=== PATIENT | female | born 1965 | race Caucasian/White ===

== ENCOUNTER 2023-09-15 08:04 | Inpatient (IN) | payer OTHER, SELFPAY ==
[2023-09-15] VITALS (12 sets, daily range): BP systolic 135–177; BP diastolic 67–88; PULSE 98–120; RESP 14–22; TEMP 36.2–36.8; O2SAT 92–99; BMI 37.9
--- NOTE | ~2023-09-15 | CT_ITS ---
EXAMINATION: CT abdomen pelvis w con DATE: 09/15/2023 09:54 INDICATION: Pancreatitis with upper abdominal pain TECHNIQUE: Computed tomography (CT) of the abdomen and pelvis was performed with 100 mL Omnipaque-350 intravenous contrast. Automated exposure control and iterative reconstruction technique were employe d. The dose-length product was 1127.04 mGy-cm. COMPARISON: None FINDINGS: Mild atelectasis in the bilateral lower lungs. Heart size is normal. Atherosclerotic coronary artery calcific location. No pericardial or pleural effusion. Liver, gallbladder, spleen, bilateral adrenal glands and right kidney are normal. 9 mm cyst at the upper pole of the left kidney. There is strandin g surrounding the head of the pancreas consistent with acute interstitial pancreatitis. No associated necrosis, hemorrhage or peripancreatic fluid collections. There is diffuse fatty infiltration of the wall of the colon likely related to body habitus. Small bowel and appendix are normal. Bladder, ante verted uterus and bilateral adnexa are unremarkable. No free intraperitoneal gas or fluid. No patholo gically enlarged abdominal or pelvic lymphadenopathy. Mild degenerative skeletal changes in the spine and pelvis. IMPRESSION: 1. Radiographically uncomplicated acute interstitial pancreatitis. Reviewed, dictated and finalized at location A. [employer] [employer]
--- NOTE | ~2023-09-15 | US_ITS ---
EXAMINATION: US abdomen limited DATE: 09/18/2023 10:01 INDICATION: Severe right upper quadrant pain TECHNIQUE: Multiple grayscale and Doppler ultrasound images of the abdomen were obtained. COMPARISON: None FINDINGS: The pancreatic head and body are normal in appearance. The pancreatic tail is not visualized. Liver has normal echogenicity and contour, with a smooth surface. No liver lesion identified. No intrahepat ic biliary duct dilation suspected. Portal venous flow was seen in the hepatopetal, normal direction and has normal Doppler waveform. The gallbladder is normal in appearance. There is a small amount of hypoechoic dependently layering sludge in the gallbladder but no shadowing cholelithiasis. The common bile duct measures 6 mm, which is normal. Sonographic Nuñez sign was reported as positive by the so nographer. Visualized portions of the proximal abdominal aorta and inferior vena cava are normal. IMPRESSION: 1. Positive sonographic Nuñez's sign but with normal-appearing gallbladder and no cholelithiasis. Th is could be related to the acute pancreatitis. Pancreas seen on prior CT but if there is high clinica l suspicion could consider further evaluation with HIDA scan. Reviewed, dictated and finalized at location A. [facility] IMPRESSION: 1. Positive sonographic Nuñez's sign but with normal-appearing gallbladder and no cholelithiasis. This could be related to the acute pancreatitis. Pancreas s een on prior CT but if there is high clinical suspicion could consider further evaluation with HIDA scan.
--- NOTE | 2023-09-15 08:34 | ECG_ITS ---
Measurements Intervals [place] Rate: 92 P: -20 NH: 156 QRS: -15 QRSD: 89 T: 60 QT: 375 QTc: 465 Interpretive Statements SINUS RHYTHM BASELINE ARTIFACT CANNOT RULE OUT aNTERIOR MYOCARDIAL INFARCTION , OF INDETERMINATE AGE BORDERLINE ECG NO PREVIOUS ECG AVAILABLE FOR COMPARISON Electronically Signed On 09-15-2023 14:08:26 [employer]K LIFT TECHNICIAN by Anthony Killian M.D.
[2023-09-15] MEDS: LACTATED RINGERS 1,000 ML 999 ML IV CONT ×2 (08:50→08:52)
[2023-09-15] MEDS: HYDROmorphone HCL INJ (*CRX) 1 MG/ML SYR IV PUSH (08:51)
[2023-09-15] MEDS: ONDANSETRON INJ 4 MG/2 ML VIAL IV PUSH (08:51)
[2023-09-15 09:02] LABS: Basophils Absolute Auto 0.1 K/mm3 (0.0-0.1); Basophils Percent Auto 0.9 % (0.2-1.2); Eosinophils Absolute Auto 0.1 K/mm3 (0-0.3); Hematocrit 39.3 % (37.0-47.0); Hemoglobin 12.7 g/dL (12.0-15.0); Immature Granulocyte Absolute 0.02 K/mm3 (0.00-0.031); Immature Granulocyte Percent A 0.4 % (0-0.5); Lymphocytes Absolute Auto 1.77 K/mm3 (0.9-3.2); Lymphocytes Percent Auto 32.7 % (18.3-44.2); Mean Corpuscular HGB Conc 32.3 g/dl (32-36); Mean Corpuscular Hemoglobin 33.7 pg (26-34); Mean Corpuscular Volume 104.2 fl (80-100); Mean Platelet Volume 11.2 fl (7.4-10.4); Monocytes Absolute Auto 0.5 K/mm3 (0.1-0.6); Monocytes Percent Auto 9.2 % (2.6-8.5); Neutrophils Percent Auto 54.8 % (45.5-73.1); Platelet Count Result 197 k/mm3 (150-375); Red Blood Count 3.77 M/mm3 (4.2-5.4); Red Cell Distribution Width 16.2 % (11.5-14.5); White Blood Count 5.4 K/mm3 (4.5-10.0)
--- NOTE | 2023-09-15 09:05 | ED.ABDPAIN ---
HPI - Abdominal Pain General Chief Complaint: Abdominal Pain Stated Complaint: abd pain Time Seen by Provider: 09/15/23 08:16 Source: patient and RN notes reviewed Mode of arrival: ambulatory Limitations: no limitations History of Present Illness HPI narrative: This is a 58 year old female with history of alcohol abuse, pancreatitis who presents for evaluation of upper abdominal pain. She has had this pain for 4 days. Her pain has been constant and it radiates to her right flank. She states this pain is similar to previous episodes of pancreatitis. She has history of pancreatitis from daily drinking alcohol. She reports her last episode was 2 years ago and she has not followed with any doctors since . She took ibuprofen for her pain without any relief. She has been having nausea and vomiting since Sunday. She denies chest pain , fever, chills. She also reports using meth 3 days ago. Related Data Allergies Allergy/AdvReac Type Severity Reaction Status Date / Time No Known Allergies Allergy Verified 09/15/23 08:10 Review of Systems Review of Systems: All systems reviewed & are unremarkable except as noted in HPI and below Constitutional: Constitutional: Denies weakness Cardiovascular: Cardiovascular: Denies syncope, Denies rapid heart rate, Denies irregular heart rhythm, Denies leg edema and Denies dyspnea Respiratory: Respiratory: Denies chest congestion, Denies hemoptysis, Denies excessive phlegm production and Denies dyspnea Gastrointestinal: Gastrointestinal: Reports abdominal pain, Denies hematochezia, Denies diarrhea, Reports nausea and Reports vomiting Genitourinary: Genitourinary: Denies hematuria and Denies dysuria Musculoskeletal: Musculoskeletal: Reports back pain, Denies joint swelling, Denies loss of height and Denies muscle weakness Neurologic: Denies syncope, Denies focal weakness and Denies weakness [facility] Past Medical History Medical History (Updated 09/15/23 @ 17:49 by Sonya Harris MD) Alcohol abuse Coronary artery disease Pancreatitis Polysubstance abuse Surgical History Surgical History History of coronary artery stent placement Family History Family History (Updated 09/15/23 @ 15:00 by Kenia Wellington RN) Grandparent Diabetes mellitus Acute myocardial infarction Other Cerebrovascular accident Grandparent No problems noted. Mother Hypertension Heart failure Father Alcoholism Liver cirrhosis Other Alcoholism Social History Social History (Updated 09/15/23 @ 13:42 by Elodia Tay PA-C) Social History: Surrogate medical decision maker: Code status: Full code. Smoking packs per day: 1 Smoking cigarettes per day: 20.0 Years smoked: 45 Smoking pack-years: 45.00 Smoking status: Current every day smoker Tobacco type: cigarettes Second hand tobacco smoke exposure: No Alcohol intake: current Drinks per week: 140 Alcohol use details: 1 pint daily Substance use: current Substance use type: marijuana and methamphetamine Other substance usage details: currently drink one fifth of R&R/ day, approx. 20 mixed drinks/day. Last use: last use meth 09/07/23, last drink 09/13/23, last marijuana use 09/13 Lack of Transportation: YES Lack of Food: Never True Current Housing: I Do Not Have Housing Concerned About Future Housing: YES Difficulty Paying Gas/Electric Bills: No Difficulty Paying for Meds: No Currently Unemployed: No Education: High School Diploma/GED Difficulty w/ Childcare or Family Care: No Spiritual care concerns: No Exam Const: General: alert; No diaphoretic Nutritional Appearance: obese Orientation/consciousness: patient oriented x3 HENMT: Head: normal to inspection Eyes: EOM: EOMs intact bilaterally Neck: Neck: normal visual inspection Chest: Chest palpation & inspection: normal inspection of the chest Resp: [facility]
[2023-09-15 09:13] LABS: Alanine Aminotransferase 33 U/L (6-35); Albumin Level 4.3 g/dL (3.5-5.1); Alkaline Phosphatase 162 U/L (38-126); Anion Gap 14 mmol/L (8-16); Aspartate Amino Transferase 82 U/L (14-36); Bilirubin,Total 1.1 mg/dL (0.2-1.3); Blood Urea Nitrogen 7 mg/dL (7-17); Calcium 9.3 mg/dL (8.4-10.2); Carbon Dioxide 22 mmol/L (22-30); Chloride 101 mmol/L (98-107); Estimated CRCL calculation 73 ml/min; Estimated Glomerular Filt Rate > 60; Glucose 119 mg/dL (65-110); Lipase 810 U/L (23-300); Potassium 3.6 mmol/L (3.4-5.0); Sodium 137 mmol/L (137-145)
[2023-09-15 10:25] LABS: Appearance Urine Cloudy (Clear); Bacteria Urine Rare /hpf; Bilirubin Urine Negative (Negative); Blood Urine Negative (Negative); Color Urine Yellow (Yellow); Glucose Urine UA Negative (Negative); Ketones Urine Negative (Negative); Leukocyte Esterase Ur Negative LEU/UL (Negative); Nitrate Urine Negative (Negative); Non Pathogenic Casts 0-2; Protein Urine Negative (Negative); RBC Urine 0-2 /hpf (0-2); Squamous Epithelial Cell Urine Moderate /hpf (Few); WBC Urine 0-5 /hpf
[2023-09-15 11:00] LABS: Specific Grav Ur 1.042 (1.001-1.035)
[2023-09-15 11:02] LABS: Add Urine Microscopic? YES
[2023-09-15] MEDS: HYDROmorphone HCL INJ (*CRX) 1 MG/ML SYR 0.5 MG IV PUSH ×3 (11:47→20:48)
--- NOTE | 2023-09-15 12:15 | ADMGEN ---
This patient, Iesha Camargo, was admitted to 2 Medical Room 261-01. Patient/family oriented to hospital policies and general routines including ID bracelet, bed and alarms, visiting hours, pain management, procedures, bathroom and other care routines, personal items, smoking policy, room service/diet, and visiting hours. Information on how to activate the Rapid Response Team has been discussed. Patient/Family are encouraged to report perceived risks to care and to ask questions if they do not understand what they are told or what they should do. Report taken from VASQUEZ Falcon in ED
--- NOTE | 2023-09-15 13:38 | PM.IMHP ---
H&P: HPI History of Present Illness Date/Time: 09/15/23 14:00 Chief Complaint: Abdominal pain. Narrative: This is a pleasant 58-year-old female smoker with history of pancreatitis, alcohol and illicit substance abuse, and coronary artery disease status post stents who presented to the emergency department via private vehicle for evaluation of abdominal pain. The patient provides the following history. She gives a 4 day history of consistent and progressively worsening diffuse upper abdominal pain radiating to the flank associated with nausea. She has been taking ibuprofen for pain without relief. These symptoms are similar to those she had experienced with pancreatitis 2 years ago. She has not had a drink of alcohol for 2 days and reports feeling mildly tremulous and anxious. She denies fever, chills, sweats, chest pain, shortness a breath, hematemesis, melena, hematochezia, hallucinations, and history of alcohol withdrawal seizure. She was afebrile on arrival to the emergency department with stable vital signs though systolic blood pressures have been a bit elevated. Workup in the ED is consistent with acute uncomplicated interstitial pancreatitis and she is being admitted in this setting for further treatment. Review of Systems Review of Systems: Twelve systems were reviewed and are negative except for as per HPI. [facility] Past Medical History Medical History (Updated 09/15/23 @ 17:49 by Sonya Harris MD) Alcohol abuse Coronary artery disease Pancreatitis Polysubstance abuse Surgical History Surgical History History of coronary artery stent placement Family History Family History Grandparent Diabetes mellitus Acute myocardial infarction Other Cerebrovascular accident Grandparent No problems noted. Mother Hypertension Heart failure Father Alcoholism Liver cirrhosis Other Alcoholism Social History Social History (Updated 09/15/23 @ 20:48 by Elodia Tay PA-C) Social History: Surrogate medical decision maker: Yesica Camargo, [id number]. Code status: Full code. Smoking packs per day: 1 Smoking cigarettes per day: 20.0 Years smoked: 45 Smoking pack-years: 45.00 Smoking status: Current every day smoker Tobacco type: cigarettes Second hand tobacco smoke exposure: No Alcohol intake: current Drinks per week: 140 Alcohol use details: Up to a 5th of whiskey a day. Substance use: current Substance use type: marijuana and methamphetamine Other substance usage details: currently drink one fifth of R&R/ day, approx. 20 mixed drinks/day. Last use: last use meth 09/07/23, last drink 09/13/23, last marijuana use 09/13 Lack of Transportation: YES Lack of Food: Never True Current Housing: I Do Not Have Housing Concerned About Future Housing: YES Difficulty Paying Gas/Electric Bills: No Difficulty Paying for Meds: No Currently Unemployed: No Education: High School Diploma/GED Difficulty w/ Childcare or Family Care: No Spiritual care concerns: No Meds Home Medications and Allergies Home Medications Medication Instructions Recorded Confirmed Type No Home Medications 09/15/23 09/15/23 History Allergies Allergy/AdvReac Type Severity Reaction Status Date / Time No Known Allergies Allergy Verified 09/15/23 08:10 Vital Signs Vital Signs - 24 hr 09/15/23 08:08 09/15/23 08:18 09/15/23 10:02 Temperature 98.3 F Pulse Rate 120 H 113 H 101 H Respiratory Rate 20 22 H 14 Blood Pressure 177/84 H 164/88 H 158/83 H Pulse Oximetry 99 99 97 Oxygen Delivery Room Air 09/15/23 10:13 09/15/23 11:08 09/15/23 10:59 Temperature Pulse Rate 104 H 102 H 105 H Respiratory Rate 17 19 18 Blood Pressure 175/86 H 144/70 H 135/67 Pulse Oximetry 97 95 96 Oxygen Delivery 09/15/23 11:49 Temperature Pulse Rate 1
[2023-09-15] MEDS: THIAMINE HCL 200 MG/2 ML VIAL 100 MG IM (16:06)
[2023-09-15] MEDS: LACTATED RINGERS 1,000 ML 150 ML IV CONT ×2 (16:06→23:13)
[2023-09-15] MEDS: FOLIC ACID 1 MG/0.2 ML INJ IV PUSH (16:07)
[2023-09-15] MEDS: chlordiazePOXIDE (*CRX) 25 MG CAPSULE PO (20:42)
[2023-09-15] MEDS: NICOTINE (*PBKC) 21 MG PATCH 1 PATCH TRANSDERM (20:42)
[2023-09-15] MEDS: LORazepam INJ (*CRX) 2 MG/ML VIAL IV PUSH (23:15)
[2023-09-16] VITALS (9 sets, daily range): BP systolic 141–151; BP diastolic 67–79; PULSE 94–106; RESP 16–18; TEMP 36.2–36.5; O2SAT 84–98
[2023-09-16] MEDS: HYDROmorphone HCL INJ (*CRX) 1 MG/ML SYR 0.5 MG IV PUSH (04:59)
[2023-09-16] MEDS: LORazepam INJ (*CRX) 2 MG/ML VIAL IV PUSH ×3 (05:06→17:34)
[2023-09-16] MEDS: chlordiazePOXIDE (*CRX) 25 MG CAPSULE PO ×3 (05:06→22:13)
[2023-09-16 05:38] LABS: Basophils Absolute Auto 0.1 K/mm3 (0.0-0.1); Eosinophils Absolute Auto 0.1 K/mm3 (0-0.3); Eosinophils Percent Auto 1.9 % (0-4.4); Hematocrit 35.4 % (37.0-47.0); Hemoglobin 11.2 g/dL (12.0-15.0); Immature Granulocyte Absolute 0.02 K/mm3 (0.00-0.031); Immature Granulocyte Percent A 0.4 % (0-0.5); Lymphocytes Absolute Auto 1.75 K/mm3 (0.9-3.2); Lymphocytes Percent Auto 33.7 % (18.3-44.2); Mean Corpuscular HGB Conc 31.6 g/dl (32-36); Mean Corpuscular Hemoglobin 33.6 pg (26-34); Mean Corpuscular Volume 106.3 fl (80-100); Mean Platelet Volume 10.2 fl (7.4-10.4); Monocytes Absolute Auto 0.5 K/mm3 (0.1-0.6); Monocytes Percent Auto 8.9 % (2.6-8.5); Neutrophils Absolute Auto 2.8 K/mm3 (1.3-6.7); Neutrophils Percent Auto 54.1 % (45.5-73.1); Platelet Count Result 166 k/mm3 (150-375); Red Blood Count 3.33 M/mm3 (4.2-5.4); Red Cell Distribution Width 16.3 % (11.5-14.5); White Blood Count 5.2 K/mm3 (4.5-10.0)
[2023-09-16 05:49] LABS: Alanine Aminotransferase 28 U/L (6-35); Albumin Level 3.6 g/dL (3.5-5.1); Alkaline Phosphatase 123 U/L (38-126); Anion Gap 9 mmol/L (8-16); Aspartate Amino Transferase 72 U/L (14-36); Bilirubin,Total 1.1 mg/dL (0.2-1.3); Blood Urea Nitrogen 8 mg/dL (7-17); Calcium 8.5 mg/dL (8.4-10.2); Carbon Dioxide 24 mmol/L (22-30); Chloride 102 mmol/L (98-107); Estimated CRCL calculation 86 ml/min; Estimated Glomerular Filt Rate > 60; Glucose 113 mg/dL (65-110); Lipase 329 U/L (23-300); Magnesium 1.6 mg/dL (1.6-2.3); Potassium 3.7 mmol/L (3.4-5.0); Sodium 135 mmol/L (137-145)
[2023-09-16 06:01] LABS: Anisocytosis 1+ (NORMAL); Platelet Estimate Adequate (Adequate); Schistocytes None Seen (NORMAL)
[2023-09-16] MEDS: LACTATED RINGERS 1,000 ML 150 ML IV CONT ×2 (06:28→13:42)
[2023-09-16 06:53] LABS: Folic Acid 7.7 ng/mL (2.76->20)
[2023-09-16] MEDS: PANTOPRAZOLE SODIUM IV 40 MG VIAL IV PUSH (08:18)
[2023-09-16] MEDS: THIAMINE HCL 200 MG/2 ML VIAL 100 MG IV PUSH (08:18)
[2023-09-16] MEDS: ENOXAPARIN 40 MG/0.4 ML SYRINGE SUB-Q (08:19)
[2023-09-16] MEDS: NICOTINE (*PBKC) 21 MG PATCH 1 PATCH TRANSDERM (08:20)
--- NOTE | 2023-09-16 10:43 | PM.IMPN ---
Progress Note: A&P Assessment and Plan (1) Acute pancreatitis: Qualifiers: Pancreatitis type: alcohol induced Code(s): K85.90 - Acute pancreatitis without necrosis or infection, unspecified Status: Acute Assessment and Plan: CT shows radiographically uncomplicated acute interstitial pancreatitis, most certainly due to alcohol abuse. Supportive care with bowel rest and IV fluid rehydration. Analgesics and antiemetics available as needed. Trend lipase daily, much improved today 09/16 09/16: ADAT (2) Dehydration: Code(s): E86.0 - Dehydration Status: Acute Assessment and Plan: Secondary to nausea, vomiting, and poor oral intake. Continue IV fluid rehydration. Monitor daily weights and I/O. (3) Alcohol abuse: Code(s): F10.10 - Alcohol abuse, uncomplicated Status: Acute Assessment and Plan: Patient reportedly drinks a pt of alcohol a day. Initiate CIWA protocol. Scheduled Librium 25 mg q.8 hours. Start thiamine and folic acid supplementation. (4) Polysubstance abuse: Code(s): F19.10 - Other psychoactive substance abuse, uncomplicated Status: Acute Assessment and Plan: Including tobacco, alcohol, marijuana, and methamphetamines. CIWA protocol as above. Monitor closely for signs of withdrawal. (5) Coronary artery disease: Code(s): I25.10 - Atherosclerotic heart disease of [place] coronary artery without angina pectoris Status: Acute Assessment and Plan: No acute issues. Plan DVT prophylaxis with SCDs GI prophylaxis not indicated Code status full code Subjective Date/time seen: 09/16/23 10:43 Interval history: 58-year-old female with history of pancreatitis, alcohol abuse and heart disease is presenting with abdominal pain and currently being treated for acute pancreatitis and assistance in quitting alcohol. No overnight events noted. No chest pain or shortness of breath. No nausea, vomiting or diarrhea. No fevers or chills. Patient states she feels much better than when she came in and would like her diet advanced. Review of Systems Review of Systems: 12 point review of systems was assessed and was negative except as noted in the HPI Exam Narrative: General: No acute distress, alert and oriented per baseline HEENT: Atraumatic, normocephalic, mucous membranes moist CV: Regular rate and rhythm, S1, S2 Lungs: Clear to auscultation bilaterally, no rales or crackles noted, no wheezes, good air entry Abdomen: Soft, mildly tender to palpation Extremities: Normal to inspection Skin: No rashes noted, no lesions or wounds seen Psych: Euthymic, normal affect Objective Data Vital Signs Vital Signs: Vital Signs - 24 hr 09/15/23 11:08 09/15/23 10:59 09/15/23 11:49 Temperature Pulse Rate 102 H 105 H 101 H Pulse Rate [Right Radial Palpation] Respiratory Rate 19 18 16 Blood Pressure 144/70 H 135/67 142/71 H Pulse Oximetry 95 96 98 Oxygen Delivery 09/15/23 13:00 09/15/23 12:42 09/15/23 16:51 Temperature 97.1 F L Pulse Rate 103 H Pulse Rate [Right Radial Palpation] 98 Respiratory Rate 20 Blood Pressure 145/70 H Pulse Oximetry 95 94 Oxygen Delivery Room Air 09/15/23 16:00 09/15/23 14:30 09/15/23 22:00 Temperature 97.9 F Pulse Rate 99 Pulse Rate [Right Radial Palpation] 104 H Respiratory Rate 18 Blood Pressure 143/73 H Pulse Oximetry 92 Oxygen Delivery Room Air 09/15/23 20:00 09/16/23 06:00 09/16/23 08:00 Temperature 97.7 F Pulse Rate 104 H Pulse Rate [Right Radial Palpation] 106 H Respiratory Rate 16 Blood Pressure 147/67 H Pulse Oximetry 90 Oxygen Delivery Room Air Intake/Output Intake/Output: Intake & Output 09/13/23 09/14/23 09/15/23 09/16/23 23:59 23:59 23:59 23:59 Intake Total 3000 1000 Output Total 250 Balance 2750 1000 Meds/Results Medications: Active Medicati
[2023-09-17] MEDS: HYDROmorphone HCL INJ (*CRX) 1 MG/ML SYR 0.5 MG IV PUSH (00:38)
[2023-09-17] MEDS: LORazepam INJ (*CRX) 2 MG/ML VIAL IV PUSH ×3 (00:39→20:53)
[2023-09-17] MEDS: LACTATED RINGERS 1,000 ML 150 ML IV CONT ×2 (00:49→08:59)
[2023-09-17] MEDS: chlordiazePOXIDE (*CRX) 25 MG CAPSULE PO ×3 (05:16→20:54)
[2023-09-17 05:22] VITALS: BP 130/65; PULSE 93; RESP 20; TEMP 36.3; O2SAT 98
[2023-09-17 06:26] LABS: Basophils Percent Auto 0.9 % (0.2-1.2); Eosinophils Absolute Auto 0.1 K/mm3 (0-0.3); Eosinophils Percent Auto 1.7 % (0-4.4); Hematocrit 33.8 % (37.0-47.0); Hemoglobin 10.6 g/dL (12.0-15.0); Immature Granulocyte Absolute 0.01 K/mm3 (0.00-0.031); Immature Granulocyte Percent A 0.2 % (0-0.5); Lymphocytes Absolute Auto 1.65 K/mm3 (0.9-3.2); Lymphocytes Percent Auto 35.8 % (18.3-44.2); Mean Corpuscular HGB Conc 31.4 g/dl (32-36); Mean Corpuscular Volume 108.3 fl (80-100); Mean Platelet Volume 11.1 fl (7.4-10.4); Monocytes Absolute Auto 0.5 K/mm3 (0.1-0.6); Monocytes Percent Auto 11.3 % (2.6-8.5); Neutrophils Absolute Auto 2.3 K/mm3 (1.3-6.7); Neutrophils Percent Auto 50.1 % (45.5-73.1); Platelet Count Result 162 k/mm3 (150-375); Red Blood Count 3.12 M/mm3 (4.2-5.4); Red Cell Distribution Width 16.5 % (11.5-14.5); White Blood Count 4.6 K/mm3 (4.5-10.0)
[2023-09-17 07:06] LABS: Alanine Aminotransferase 22 U/L (6-35); Albumin Level 3.5 g/dL (3.5-5.1); Alkaline Phosphatase 119 U/L (38-126); Anion Gap 7 mmol/L (8-16); Aspartate Amino Transferase 53 U/L (14-36); Blood Urea Nitrogen 8 mg/dL (7-17); Calcium 8.4 mg/dL (8.4-10.2); Carbon Dioxide 28 mmol/L (22-30); Chloride 102 mmol/L (98-107); Estimated CRCL calculation 88 ml/min; Estimated Glomerular Filt Rate > 60; Glucose 116 mg/dL (65-110); Potassium 3.9 mmol/L (3.4-5.0); Sodium 137 mmol/L (137-145)
[2023-09-17 07:41] LABS: Macrocytosis 1+ (NORMAL); Platelet Estimate Adequate (Adequate); Schistocytes None Seen (NORMAL)
[2023-09-17 08:00] VITALS: O2SAT 98
[2023-09-17] MEDS: ENOXAPARIN 40 MG/0.4 ML SYRINGE SUB-Q (09:01)
[2023-09-17] MEDS: NICOTINE (*PBKC) 21 MG PATCH 1 PATCH TRANSDERM (09:01)
[2023-09-17] MEDS: THIAMINE HCL 200 MG/2 ML VIAL 100 MG IV PUSH (09:01)
[2023-09-17] MEDS: PANTOPRAZOLE SODIUM IV 40 MG VIAL IV PUSH (09:01)
--- NOTE | 2023-09-17 13:46 | PM.IMPN ---
Progress Note: A&P Assessment and Plan (1) Acute pancreatitis: Qualifiers: Pancreatitis type: alcohol induced Code(s): K85.90 - Acute pancreatitis without necrosis or infection, unspecified Status: Acute Assessment and Plan: CT shows radiographically uncomplicated acute interstitial pancreatitis, most certainly due to alcohol abuse. Supportive care with bowel rest and IV fluid rehydration. Analgesics and antiemetics available as needed. Trend lipase daily, much improved today 09/16 09/16: ADAT 09/17: Check lipase, still pending, right upper quadrant ultrasound (2) Dehydration: Code(s): E86.0 - Dehydration Status: Acute Assessment and Plan: Secondary to nausea, vomiting, and poor oral intake. Continue IV fluid rehydration. Monitor daily weights and I/O. Resolved, discontinue IV fluids (3) Alcohol abuse: Code(s): F10.10 - Alcohol abuse, uncomplicated Status: Acute Assessment and Plan: Patient reportedly drinks a pt of alcohol a day. Initiate CIWA protocol. Scheduled Librium 25 mg q.8 hours. Start thiamine and folic acid supplementation. Resolved (4) Polysubstance abuse: Code(s): F19.10 - Other psychoactive substance abuse, uncomplicated Status: Acute Assessment and Plan: Including tobacco, alcohol, marijuana, and methamphetamines. CIWA protocol as above. Monitor closely for signs of withdrawal. Resolved (5) Coronary artery disease: Code(s): I25.10 - Atherosclerotic heart disease of [place] coronary artery without angina pectoris Status: Acute Assessment and Plan: No acute issues. Plan DVT prophylaxis with Lovenox GI prophylaxis with PPI Code status full code Subjective Date/time seen: 09/17/23 13:46 Interval history: 58-year-old female with history of pancreatitis, alcohol abuse and heart disease is presenting with abdominal pain and currently being treated for acute pancreatitis and assistance in quitting alcohol. No overnight events noted. No chest pain or shortness of breath. No nausea, vomiting. No fevers or chills. Patient with worsening abdominal pain with oral intake today. She states that radiates into her back. She admits to some diarrhea. Review of Systems Review of Systems: 12 point review of systems was assessed and was negative except as noted in the HPI Exam Narrative: General: No acute distress, alert and oriented per baseline HEENT: Atraumatic, normocephalic, mucous membranes moist CV: Regular rate and rhythm, S1, S2 Lungs: Clear to auscultation bilaterally, no rales or crackles noted, no wheezes, good air entry Abdomen: Soft, mildly tender to palpation Extremities: Normal to inspection Skin: No rashes noted, no lesions or wounds seen Psych: Euthymic, normal affect Objective Data Vital Signs Vital Signs: Vital Signs - 24 hr 09/16/23 14:00 09/16/23 17:00 09/16/23 19:30 Temperature 97.6 F 97.1 F L Pulse Rate 100 97 Pulse Rate [Right Radial Palpation] 102 H Respiratory Rate 16 18 Blood Pressure 151/79 H 141/73 H Pulse Oximetry 91 84 L Oxygen Delivery Oxygen Flow Rate 09/16/23 19:34 09/16/23 20:00 09/17/23 05:22 Temperature 97.4 F L Pulse Rate 93 Pulse Rate [Right Radial Palpation] Respiratory Rate 20 Blood Pressure 130/65 Pulse Oximetry 98 98 98 Oxygen Delivery Nasal Cannula Nasal Cannula Oxygen Flow Rate 2 2 09/17/23 08:00 Temperature Pulse Rate Pulse Rate [Right Radial Palpation] Respiratory Rate Blood Pressure Pulse Oximetry 98 Oxygen Delivery Nasal Cannula Oxygen Flow Rate 2 Intake/Output Intake/Output: Intake & Output 09/14/23 09/15/23 09/16/23 09/17/23 23:59 23:59 23:59 23:59 Intake Total 3000 2000 3080 Output Total 250 900 600 Balance 2750 1100 2480 Meds/Results Medications: Active Medications Generic Name Dose Route Start Last Admin Trade
[2023-09-17 14:00] VITALS: BP 149/76; PULSE 94; RESP 16; TEMP 37.1; O2SAT 100
[2023-09-17 14:06] LABS: Lipase 129 U/L (23-300)
[2023-09-17] MEDS: CYANOCOBALAMIN INJ 1,000 MCG/ML VIAL 1000 MCG IM (14:52)
[2023-09-17 19:34] VITALS: BP 158/77; PULSE 102; RESP 20; TEMP 37.1; O2SAT 95
[2023-09-18 03:19] VITALS: BP 120/63; PULSE 88; RESP 20; TEMP 37.1; O2SAT 90
[2023-09-18] MEDS: chlordiazePOXIDE (*CRX) 25 MG CAPSULE PO ×3 (05:36→21:14)
[2023-09-18 06:03] LABS: Basophils Percent Auto 0.9 % (0.2-1.2); Eosinophils Absolute Auto 0.1 K/mm3 (0-0.3); Hemoglobin 10.3 g/dL (12.0-15.0); Immature Granulocyte Absolute 0.01 K/mm3 (0.00-0.031); Immature Granulocyte Percent A 0.2 % (0-0.5); Lymphocytes Absolute Auto 1.58 K/mm3 (0.9-3.2); Lymphocytes Percent Auto 35.7 % (18.3-44.2); Mean Corpuscular HGB Conc 31.2 g/dl (32-36); Mean Corpuscular Hemoglobin 33.6 pg (26-34); Mean Corpuscular Volume 107.5 fl (80-100); Mean Platelet Volume 10.9 fl (7.4-10.4); Monocytes Absolute Auto 0.4 K/mm3 (0.1-0.6); Monocytes Percent Auto 9.3 % (2.6-8.5); Neutrophils Absolute Auto 2.3 K/mm3 (1.3-6.7); Neutrophils Percent Auto 51.9 % (45.5-73.1); Platelet Count Result 172 k/mm3 (150-375); Red Blood Count 3.07 M/mm3 (4.2-5.4); Red Cell Distribution Width 16.4 % (11.5-14.5); White Blood Count 4.4 K/mm3 (4.5-10.0)
[2023-09-18 06:15] LABS: Alanine Aminotransferase 21 U/L (6-35); Albumin Level 3.3 g/dL (3.5-5.1); Alkaline Phosphatase 113 U/L (38-126); Anion Gap 7 mmol/L (8-16); Aspartate Amino Transferase 53 U/L (14-36); Bilirubin,Total 1.2 mg/dL (0.2-1.3); Blood Urea Nitrogen 4 mg/dL (7-17); Calcium 8.2 mg/dL (8.4-10.2); Carbon Dioxide 28 mmol/L (22-30); Chloride 103 mmol/L (98-107); Estimated CRCL calculation 87 ml/min; Estimated Glomerular Filt Rate > 60; Glucose 111 mg/dL (65-110); Potassium 3.4 mmol/L (3.4-5.0); Sodium 138 mmol/L (137-145)
[2023-09-18] MEDS: LORazepam INJ (*CRX) 2 MG/ML VIAL IV PUSH ×2 (08:19→21:13)
[2023-09-18] MEDS: THIAMINE HCL 200 MG/2 ML VIAL 100 MG IV PUSH (08:20)
[2023-09-18] MEDS: ENOXAPARIN 40 MG/0.4 ML SYRINGE SUB-Q (08:23)
[2023-09-18] MEDS: NICOTINE (*PBKC) 21 MG PATCH 1 PATCH TRANSDERM (08:23)
[2023-09-18] MEDS: PANTOPRAZOLE SODIUM IV 40 MG VIAL IV PUSH (08:23)
--- NOTE | 2023-09-18 09:31 | PM.IMPN ---
Progress Note: A&P Assessment and Plan (1) Acute pancreatitis: Qualifiers: Pancreatitis type: alcohol induced Code(s): K85.90 - Acute pancreatitis without necrosis or infection, unspecified Status: Acute Assessment and Plan: CT shows radiographically uncomplicated acute interstitial pancreatitis, most certainly due to alcohol abuse. Supportive care with bowel rest and IV fluid rehydration. Analgesics and antiemetics available as needed. Trend lipase daily, much improved today 09/16 09/16: ADAT 09/17: Check lipase, still pending, right upper quadrant ultrasound 09/18: lipase resolved, US pending (2) Dehydration: Code(s): E86.0 - Dehydration Status: Acute Assessment and Plan: Secondary to nausea, vomiting, and poor oral intake. Continue IV fluid rehydration. Monitor daily weights and I/O. Resolved, discontinue IV fluids (3) Alcohol abuse: Code(s): F10.10 - Alcohol abuse, uncomplicated Status: Acute Assessment and Plan: Patient reportedly drinks a pt of alcohol a day. Initiate CIWA protocol. Scheduled Librium 25 mg q.8 hours. Start thiamine and folic acid supplementation. Resolved (4) Polysubstance abuse: Code(s): F19.10 - Other psychoactive substance abuse, uncomplicated Status: Acute Assessment and Plan: Including tobacco, alcohol, marijuana, and methamphetamines. CIWA protocol as above. Monitor closely for signs of withdrawal. Resolved (5) Coronary artery disease: Code(s): I25.10 - Atherosclerotic heart disease of [place] coronary artery without angina pectoris Status: Acute Assessment and Plan: No acute issues. Plan DVT prophylaxis with Lovenox GI prophylaxis with PPI Code status full code Subjective Date/time seen: 09/18/23 09:31 Interval history: 58-year-old female with history of pancreatitis, alcohol abuse and heart disease is presenting with abdominal pain and currently being treated for acute pancreatitis and assistance in quitting alcohol. No overnight events noted. No chest pain or shortness of breath. No nausea, vomiting. No fevers or chills. Patient with worsening abdominal pain with oral intake today. She states that radiates into her back. She admits to some diarrhea. Review of Systems Review of Systems: 12 point review of systems was assessed and was negative except as noted in the HPI Exam Narrative: General: No acute distress, alert and oriented per baseline HEENT: Atraumatic, normocephalic, mucous membranes moist CV: Regular rate and rhythm, S1, S2 Lungs: Clear to auscultation bilaterally, no rales or crackles noted, no wheezes, good air entry Abdomen: Soft, mildly tender to palpation Extremities: Normal to inspection Skin: No rashes noted, no lesions or wounds seen Psych: Euthymic, normal affect Objective Data Vital Signs Vital Signs: Vital Signs - 24 hr 09/17/23 14:00 09/17/23 19:34 09/17/23 20:00 Temperature 98.7 F 98.8 F Pulse Rate 94 102 H Respiratory Rate 16 20 Blood Pressure 149/76 H 158/77 H Pulse Oximetry 100 95 Oxygen Delivery Room Air 09/18/23 03:19 Temperature 98.7 F Pulse Rate 88 Respiratory Rate 20 Blood Pressure 120/63 Pulse Oximetry 90 Oxygen Delivery Intake/Output Intake/Output: Intake & Output 09/15/23 09/16/23 09/17/23 09/18/23 23:59 23:59 23:59 23:59 Intake Total 3000 2000 4400 120 Output Total 014 789 7723 800 Balance 2750 1100 1700 -680 Meds/Results Medications: Active Medications Generic Name Dose Route Start Last Admin Trade Name Freq PRN Reason Stop Dose Admin Chlordiazepoxide HCl 25 mg 09/15/23 20:25 09/18/23 05:36 Chlordiazepoxide (*Crx) 25 Mg Capsule PO 25 mg Q8HR BELL Administration Cyanocobalamin 1,000 mcg 09/17/23 14:00 09/17/23 14:52 Cyanocobalamin Inj 1,000 Mcg/Ml Vial IM 1,000 mcg WEEKLY BELL Administration Enoxaparin Sodi
[2023-09-18] MEDS: HYDROmorphone HCL INJ (*CRX) 1 MG/ML SYR 0.5 MG IV PUSH (12:01)
[2023-09-18 15:04] VITALS: BP 122/62; PULSE 95; RESP 16; TEMP 36.4; O2SAT 96
[2023-09-18 19:49] VITALS: BP 139/72; PULSE 96; RESP 20; TEMP 36.7; O2SAT 97
[2023-09-18 20:00] VITALS: PULSE 96
[2023-09-18 23:54] VITALS: PULSE 90
[2023-09-19 04:00] VITALS: BP 114/50; PULSE 87
[2023-09-19 04:33] VITALS: BP 114/50; PULSE 87; RESP 20; TEMP 37.1; O2SAT 95
[2023-09-19 05:14] LABS: Basophils Percent Auto 1.1 % (0.2-1.2); Eosinophils Absolute Auto 0.1 K/mm3 (0-0.3); Eosinophils Percent Auto 2.9 % (0-4.4); Hematocrit 33.9 % (37.0-47.0); Hemoglobin 10.7 g/dL (12.0-15.0); Immature Granulocyte Absolute 0.01 K/mm3 (0.00-0.031); Immature Granulocyte Percent A 0.3 % (0-0.5); Lymphocytes Absolute Auto 1.35 K/mm3 (0.9-3.2); Lymphocytes Percent Auto 35.7 % (18.3-44.2); Mean Corpuscular HGB Conc 31.6 g/dl (32-36); Mean Corpuscular Hemoglobin 33.9 pg (26-34); Mean Corpuscular Volume 107.3 fl (80-100); Mean Platelet Volume 10.6 fl (7.4-10.4); Monocytes Absolute Auto 0.4 K/mm3 (0.1-0.6); Monocytes Percent Auto 10.3 % (2.6-8.5); Neutrophils Absolute Auto 1.9 K/mm3 (1.3-6.7); Neutrophils Percent Auto 49.7 % (45.5-73.1); Platelet Count Result 166 k/mm3 (150-375); Red Blood Count 3.16 M/mm3 (4.2-5.4); Red Cell Distribution Width 16.7 % (11.5-14.5); White Blood Count 3.8 K/mm3 (4.5-10.0)
[2023-09-19 05:23] LABS: Alanine Aminotransferase 21 U/L (6-35); Albumin Level 3.2 g/dL (3.5-5.1); Alkaline Phosphatase 135 U/L (38-126); Anion Gap 9 mmol/L (8-16); Aspartate Amino Transferase 45 U/L (14-36); Blood Urea Nitrogen 5 mg/dL (7-17); Calcium 8.5 mg/dL (8.4-10.2); Carbon Dioxide 26 mmol/L (22-30); Chloride 104 mmol/L (98-107); Estimated CRCL calculation 75 ml/min; Estimated Glomerular Filt Rate > 60; Glucose 185 mg/dL (65-110); Potassium 3.1 mmol/L (3.4-5.0); Sodium 139 mmol/L (137-145)
[2023-09-19] MEDS: chlordiazePOXIDE (*CRX) 25 MG CAPSULE PO ×2 (05:47→13:21)
[2023-09-19 06:23] LABS: Anisocytosis 1+ (NORMAL); Hypochromasia 1+ (NORMAL); Platelet Estimate Adequate (Adequate)
[2023-09-19 06:24] LABS: Schistocytes None Seen (NORMAL)
[2023-09-19 07:40] VITALS: RESP 20; O2SAT 95
[2023-09-19 07:42] LABS: Magnesium 1.9 mg/dL (1.6-2.3)
[2023-09-19] MEDS: POTASSIUM CHLORIDE 20 MEQ ER TABLET 40 MEQ PO (08:44)
[2023-09-19] MEDS: MAGNESIUM SULF 1 GM/D5W 100 ML 1 GM/100 ML BAG IVPB (08:44)
[2023-09-19] MEDS: NICOTINE (*PBKC) 21 MG PATCH 1 PATCH TRANSDERM (08:59)
[2023-09-19] MEDS: PANTOPRAZOLE 40 MG TABLET PO (09:00)
[2023-09-19] MEDS: THIAMINE HCL 100 MG TABLET PO (09:00)
[2023-09-19] MEDS: ENOXAPARIN 40 MG/0.4 ML SYRINGE SUB-Q (09:00)
--- NOTE | 2023-09-19 13:43 | PM.DS ---
DS: Admitting Diagnosis Discharge Date 09/19/23 Admitting Diagnosis Abdominal pain DS: Discharge Diagnosis Discharge Diagnosis (1) Acute pancreatitis: Qualifiers: Pancreatitis type: alcohol induced Code(s): K85.90 - Acute pancreatitis without necrosis or infection, unspecified Status: Acute (2) Dehydration: Code(s): E86.0 - Dehydration Status: Acute (3) Alcohol abuse: Code(s): F10.10 - Alcohol abuse, uncomplicated Status: Acute (4) Polysubstance abuse: Code(s): F19.10 - Other psychoactive substance abuse, uncomplicated Status: Acute (5) Coronary artery disease: Code(s): I25.10 - Atherosclerotic heart disease of [place] coronary artery without angina pectoris Status: Acute DS: Summary Hospital Course Reason for hospitalization: 58-year-old female smoker with history of pancreatitis, alcohol and illicit substance abuse, and coronary artery disease status post stents who presented to the emergency department via private vehicle for evaluation of abdominal pain.?Please see H&P for details. Hospital Course: Patient presents with complaints of abdominal pain. Lipase was 810. CBC mild large was normal with the exception with AST 82. UA was clear. CBC was normal except for macrocytosis noted. B12 level was 177. CT of the abdomen and pelvis showed uncomplicated acute interstitial pancreatitis. It was felt this was related to her history of alcohol abuse. Her last drink was about 2 days prior to admission. She was treated with IV fluids and bowel rest. Analgesics and antiemetics were available as needed. Lipase trended to normal. She was started on liquid diet and this was advanced. She tolerated this well. Right upper quadrant ultrasound showed normal appearing gallbladder. No cholelithiasis. She did have a positive Nuñez sign but could be related to the pancreatitis. AST trended down to 45. LFTs overall remained normal otherwise. Was not felt that she had cholecystitis. B12 was replaced. CIWA protocol was initiated. She was started on Librium scheduled. She was started on thiamine. She was educated about the benefits of abstaining from tobacco, alcohol, marijuana and methamphetamines. Resources provided. She overall did well was able be discharged home on 09/19/2023. Status at Discharge Cognitive/behavioral status at discharge: Stable Time Spent with Patient Time attestation: Total time spent providing and/or coordinating discharge services: 35 minutes Time spent: Greater than 30 minutes Exam Narrative: AF 98.8 114/50 87 20 95% ra Gen - NARD Chest -few basilar rhonchi otherwise clear. CV - RRR S1/S2 Abd -soft. Obese. Nontender. Ext - No pedal edema. Negative Homans sign. Psych - Nml mood and affect Skin - Warm and dry DS: Data Data Completed and Pending Labs on day of discharge: Labs from last 24 hours 09/19/23 09/19/23 04:49 04:46 WBC 3.8 L RBC 3.16 L Hgb 10.7 L Hct 33.9 L MCV 107.3 H MCH 33.9 MCHC 31.6 L RDW 16.7 H Plt Count 166 MPV 10.6 H Immature Gran % (Auto) 0.3 Neut % (Auto) 49.7 Lymph % (Auto) 35.7 [place] % (Auto) 10.3 H Eos % (Auto) 2.9 Baso % (Auto) 1.1 Lymph # (Auto) 1.35 [place] # (Auto) 0.4 Eos # (Auto) 0.1 Baso # (Auto) 0.0 Abs Immat Gran (auto) 0.01 Absolute Neuts (auto) 1.9 Absolute Nucleated RBC 0.0 Nucleated RBC % 0.0 Platelet Estimate Adequate Hypochromasia 1+ Anisocytosis 1+ Schistocytes None seen Sodium 139 Potassium 3.1 L Chloride 104 Carbon Dioxide 26 Anion Gap 9 BUN 5 L Creatinine 0.70 Estim Creat Clear Calc 75 Estimated GFR > 60 Glucose 185 H Calcium 8.5 Magnesium 1.9 Total Bilirubin 1.0 AST 45 H ALT 21 Alkaline Phosphatase 135 H Total Protein 7.0 Albumin 3.2 L Discharge Plan Discharge Attending physician on discharge: Filiberto Brito
[2023-09-19 13:53] VITALS: BP 113/58; PULSE 97; RESP 20; TEMP 37.2; O2SAT 95
== END 2023-09-19 15:10 | disposition home or self-care (01) | DRG 282 ==
LOC: ANHED 08:56 → ANH2MED 16:01
PROVIDERS: Student in an Organized Health Care Education/Training Program; Admitting Provider Hospitalist; Emergency Provider General Practice; PCP Nurse Practitioner Family; Visit Provider Internal Medicine
DX: K85.20 Alcohol induced acute pancreatitis without necrosis or infection (principal); E86.0 Dehydration; F19.10 Other psychoactive substance abuse, uncomplicated; I25.10 Atherosclerotic heart disease of native coronary artery without angina pectoris; E53.8 Deficiency of other specified B group vitamins; F17.210 Nicotine dependence, cigarettes, uncomplicated; F10.10 Alcohol abuse, uncomplicated; Z95.5 Presence of coronary angioplasty implant and graft
CPT/HCPCS: 36415; 74177; 76705; 80053; 81001; 82607; 82746; 83690; 83735; 85025; 93005; 96361; 96374; 96375; 99285; A9270; C9113; J1170; J1650; J2060; J2405; J3411; J3420; J3475; J7120; Q9967